=== PATIENT | female | born 1945 ===

== ENCOUNTER 2023-07-16 15:23 | Outpatient (CLI) | payer MEDICARE, SELFPAY ==
--- NOTE | 2023-07-16 11:30 | DI.RAD_ITS ---
Exam(s) XR KNEE RT 2V AP,LAT XR STANDING ALIGNMENT XR HIP RT COMPLETE AP PELVIS EXAM: XR STANDING ALIGNMENT, XR hip RT complete, AP pelvis and XR knee RT 2 V CLINICAL HISTORY: leg length discrepancy. TECHNIQUE: 2D digital imaging was performed. Eight images were obtained. COMPARISON: There are no priors for comparison. FINDINGS: BONES: The patient has a right total hip replacement. No suspicious lucencies are seen in or about t he orthopedic hardware. The left hip is well maintained. There are degenerative changes seen in the lower visualized lumbar spine and the sacroiliac joints. Coarse calcifications are seen in the pelv is which may reflect calcified uterine fibroids. In the right knee there is marked narrowing of both the medial femoral tibial and patellofemoral joint. Osteophytes are seen in all 3 joint compartment s, but most marked in the patellofemoral joint. In the left knee, there is marked narrowing of the m edial femoral tibial joint. Osteophytes are seen both medially and laterally. The bones are osteope mk. The ankles are well maintained.The left lower extremity is almost 2 cm longer than the right lo wer extremity. SOFT TISSUE: Normal. IMPRESSION: 1. Unremarkable right total hip replacement. 2. 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 DATA REPOSITORY: RADIATION DOSE DELIVERED:
== END 2023-07-16 15:24 | disposition home or self-care (01) ==
LOC: DIORS 15:28
PROVIDERS: PCP Nurse Practitioner Family; Referring Provider Nurse Practitioner Family; Visit Provider Student in an Organized Health Care Education/Training Program
DX: M54.31 Sciatica, right side; M17.11 Unilateral primary osteoarthritis, right knee; S76.011A Strain of muscle, fascia and tendon of right hip, initial encounter; X58.XXXA Exposure to other specified factors, initial encounter; Z96.641 Presence of right artificial hip joint
CPT/HCPCS: 99203; 73502; 73560; 77073